=== PATIENT | male | born 1930 | race Caucasian/White ===

== ENCOUNTER → 2016-07-11 08:15 | Outpatient (CLI) | payer MEDICARE, OTHER ==
[2016-05-05 18:41] VITALS: BMI 27.8
[~2016-07-11 08:15] MED LIST: ASPIRIN325 MG PO; CORDARONE200 MG PO; FLOMAX0.4 MG PO; FLORASTOR250 MG PO; FOLIC ACID1 MG PO; HEMOCYTE PLUS C1 CAP PO; HYDROCODON-ACE1 EAC7 PO; HYDROCODONE-APA1 TAB PO; K-TAB10 MEQ PO; LASIX20 MG PO; LEVAQUIN250 MG PO; LIPITOR40 MG PO; LOPRESSOR25 MG PO; NICODERM C1 PATCH .3 TD; NORVASC5 MG PO; OMEPRAZOLE20 M1 PO; PRILOSEC20 MG PO; SENOKOT-S TABLE1 TAB PO; TRIAMTERENE-HCT1 TA1 PO; TYLENOL PM1 TAB PO; XANAX0.5 MG PO; ZESTRIL10 MG PO
--- NOTE | 2016-07-15 11:12 | EC ---
PATIENT:SEB LOZA DATE OF SERVICE: 07/11/16 SEX: M MEDICAL RECORD: [id number] DATE OF : [birth year] LOCATION:[facility] AGE OF PATIENT: 86 ADMISSION DATE: 07/11/16 REFERRING PHYSICIAN: INTERPRETING PHYSICIAN: PIETER ROSAS MD ECHOCARDIOGRAM REPORT ECHO CHARGES 4 ECHO COMPLETE CLINICAL DIAGNOSIS: DYSPNEA/PLEURAL EFFUSION ECHOCARDIOGRAPHIC MEASUREMENTS (adult normal given) AC root (d.<3.7cm) 3.6 LV Septum d (<1.2 cm> 1.4 Valve Excursion 1.9 LV Septum (systole) 2.2 Left Atria (s.<4.0cm> 4.5 LVPW d(<1.2cm) 1.3 RV (d.<2.3cm) 2.6 LVPW (sytole) 1.9 LV diastole(<5.6CM) 5.5 MV E-F(>70mm/sec) LV systole 3.7 LVOT Diameter 1.9 MV exc.(>10mm) Est.ejection fraction (50-75%) Pericardial Effusion N DOPPLER: LVIT A 127.0 E 70.0 LA RVSP 31.3 LVOT 97.0 AOP1/2T Asc. Ao 142 RVOT 58.0 RA PA 95.0 AV Gradient Peak 8.1 AV Mean 4.1 AV Area 2.1 MV Gradient Peak 5.3 MV Mean 1.7 MV Area COMMENTS: Mining Teacher: Jessica MARIEOE Boxing Machine Operator:Jessica Rosas TAPE# PACS DATE OF SERVICE: 07/11/2016 Echocardiogram FINDINGS: 1. Left ventricle chamber size is within normal limits. Left ventricular systolic function is normal. Overall ejection fraction estimated at 55%. 2. Left atrium is enlarged at 4.5 cm. Right atrium and right ventricular chamber sizes are upper limits of normal. 3. Valvular structures have normal structure and motion. ECHOCARDIOGRAM REPORT [id number] SEB LOZA 4. Doppler interrogation reveals mild aortic insufficiency, trace mitral regurgitation, mild tricuspid regurgitation, no other valvular insufficiency or stenosis and pulmonary systolic pressure is estimated at 31 mmHg. 5. No evidence of pericardial effusion or left ventricular thrombus. TRANSINT:[id number] Voice Confirmation ID: [id number] DOCUMENT ID: [id number] PIETER ROSAS MD at 1112 CC: [id number] DICTATION DATE: 07/11/16 1104 TOP CLEANER: 07/12/16 0042 DEP CLI 07/11/16 [facility] [address] [place] [address]
== END | disposition home or self-care (01) ==
LOC: D.ECHO 08:15
DX: R06.00 Dyspnea, unspecified (principal); J90 Pleural effusion, not elsewhere classified

== ENCOUNTER → 2016-07-13 12:14 | Outpatient (CLI) | payer MEDICARE, OTHER ==
[2016-05-05 18:41] VITALS: BMI 27.8
== END | disposition home or self-care (01) ==
LOC: D.CT 12:14
DX: J90 Pleural effusion, not elsewhere classified (principal); R79.1 Abnormal coagulation profile

== ENCOUNTER → 2016-08-24 07:51 | Outpatient (CLI) | payer MEDICARE, OTHER ==
[2016-05-05 18:41] VITALS: BMI 27.8
[2016-08-24 08:34] LABS: HEMOGLOBIN A1C 5.9 % (4.8-6.0)
[2016-08-24 08:43] LABS: ALBUMIN 2.6 g/dL (3.4-5.0); ANION GAP 9.3 mmol/L (8-16); BILIRUBIN - TOTAL 0.65 mg/dL (0.2-1.3); CALCIUM 8.1 mg/dL (8.5-10.1); CARBON DIOXIDE 28.6 mmol/L (21.0-32.0); CREATININE - SERUM 1.3 mg/dL (0.6-1.3); POTASSIUM - SERUM 3.9 mmol/L (3.5-5.1); PROTEIN - SERUM 7.3 g/dL (6.4-8.2)
== END | disposition home or self-care (01) ==
LOC: D.LAB 07:51
PROVIDERS: Family Medicine
DX: E11.9 Type 2 diabetes mellitus without complications (principal); F34.1 Dysthymic disorder; I25.10 Atherosclerotic heart disease of native coronary artery without angina pectoris; I10 Essential (primary) hypertension; K85.90 Acute pancreatitis without necrosis or infection, unspecified; R53.83 Other fatigue; I50.22 Chronic systolic (congestive) heart failure

== ENCOUNTER → 2016-09-28 12:50 | Outpatient (CLI) | payer MEDICARE, OTHER ==
[2016-05-05 18:41] VITALS: BMI 27.8
== END | disposition home or self-care (01) ==
LOC: D.RAD 12:50
DX: J90 Pleural effusion, not elsewhere classified (principal); J18.9 Pneumonia, unspecified organism

== ENCOUNTER → 2016-12-19 08:16 | Outpatient (CLI) | payer MEDICARE, OTHER ==
[2016-05-05 18:41] VITALS: BMI 27.8
== END | disposition home or self-care (01) ==
LOC: D.RT 08:16
DX: R06.00 Dyspnea, unspecified (principal); R60.0 Localized edema

== ENCOUNTER → 2016-12-21 09:55 | Outpatient (CLI) | payer MEDICARE, OTHER ==
[2016-05-05 18:41] VITALS: BMI 27.8
== END | disposition home or self-care (01) ==
LOC: D.RAD 09:55
DX: M54.5 Low back pain (principal)

== ENCOUNTER 2017-01-06 08:10 | Outpatient (CLI) | payer MEDICARE, OTHER ==
[~2017-01-06] VITALS: Ht 177.8 cm; Wt 90.0 kg
[2017-01-06 08:44] LABS: BASOPHILS 0.2 % (0-2); EOSINOPHILS 3.3 % (0-7); HEMATOCRIT 47.8 % (42.0-54.0); HEMOGLOBIN 15.7 g/dL (13.5-17.5); IMMATURE GRANULOCYTES 0.1 % (0-5); LYMPHOCYTES 23.4 % (15-50); MCH 30.5 pg (26.0-34.0); MCHC 32.8 g/dL (31.0-37.0); MEAN PLATELET VOLUME 9.9 fL (7.4-10.4); MONOCYTES 7.9 % (2-11); NEUTROPHILS 65.1 % (40-80); PLATELET COUNT 207 10x3/uL (130-400); RBC 5.14 10x6/uL (4.20-6.10); RDW 14.7 % (11.5-14.5)
[2017-01-06 09:00] LABS: APTT 31.1 SECONDS (22.8-39.4); INR 1.01 (0.85-1.17); PROTIME 13.2 SECONDS (11.6-15.0)
[2017-01-06 09:15] LABS: ANION GAP 12.4 mmol/L (8-16); CALCIUM 8.6 mg/dL (8.5-10.1); CARBON DIOXIDE 28.6 mmol/L (21.0-32.0); CREATININE - SERUM 1.4 mg/dL (0.6-1.3); THYROID STIMULATING HORMONE 4.55 uIU/mL (0.36-3.74)
[2017-01-06] MEDS ORDERED: BAYER CHEWABLE81 MG PO (10:19)
[2017-01-06 10:24] VITALS: Ht 177.8 cm; Wt 90.0 kg
--- NOTE | 2017-01-06 12:25 | NUR ---
1215 BACK FROM THORACENTESIS LEFT POSTERIOR SITE DRESSING C/D/I NO BLEEDING.
--- NOTE | 2017-01-06 16:16 | NUR ---
1330 NO COS OF SOB RESP EVEN AND NONLABORED. DENIES PAIN AND NO CHEST PAIN OR SOB.TOLERATED DIET.
--- NOTE | 2017-01-06 16:16 | NUR ---
1245 NO COS OF PAIN OR SOB RESP EVEN AND NONLABORED. DRESSING LT CHEST C/D/I NO BLEEDING.
--- NOTE | 2017-01-06 16:17 | NUR ---
1400 NO SOB OR CHEST PAIN LEFT CHEST C/D/I.
--- NOTE | 2017-01-06 16:17 | NUR ---
1510 XRAY CHEST DONE WAITING FOR XRAY RESULTS CALLED RADIOLOGY AND WAITING FOR OKAY TO BE DISCHARGED.
--- NOTE | 2017-01-06 16:19 | NUR ---
[address] BANEGAS FOR PATIENT TO BE DISCHARGED. IV DCD CATHETER INTACT. WENT OVER DISCHARGE INSTRUCTIONS AND VERBALLY UNDERRSTANDS. TO HOME VIA W/C WITH SON 1530.
[2017-01-06 16:39] LABS: PROTEIN - BODY FLUID 3.7 G/DL
[2017-01-06 18:49] LABS: LYMPH - BF 93 %; MACROPHAGES BF 4 %; NEUT - BF 3 %
[2017-01-08 13:07] LABS: ACID FAST SMEAR Negative (()); AFB SPECIMEN PROCESSING Concentration (())
[2017-01-11 13:17] LABS: FUNGUS STAIN Final report (())
== END 2017-01-06 15:30 | disposition home or self-care (01) ==
LOC: D.OPS 08:10 → D.SP 11:00 → D.OPS 11:00
PROVIDERS: Internal Medicine Pulmonary Disease; Radiology Diagnostic Radiology
DX: J90 Pleural effusion, not elsewhere classified (principal); R06.02 Shortness of breath; I50.32 Chronic diastolic (congestive) heart failure; J44.9 Chronic obstructive pulmonary disease, unspecified; Z01.812 Encounter for preprocedural laboratory examination

== ENCOUNTER → 2017-03-15 09:33 | Outpatient (CLI) | payer MEDICARE, OTHER ==
[2017-01-06 10:24] VITALS: BMI 28.4
[~2017-03-15 09:33] MED LIST changes: +BAYER CHEWABLE81 MG PO
[2017-03-15 10:07] LABS: ANION GAP 8.8 mmol/L (8-16); CALCIUM 8.6 mg/dL (8.5-10.1); CREATININE - SERUM 1.5 mg/dL (0.6-1.3); POTASSIUM - SERUM 3.8 mmol/L (3.5-5.1)
[2017-03-15 10:13] LABS: HEMOGLOBIN A1C 6.1 % (4.8-6.0)
[2017-03-15 11:14] LABS: ERYTHROCYTE SEDIMENTATION RATE 35 mm/hr (0-30)
[2017-03-15 11:16] LABS: BASOPHILS 0.2 % (0-2); EOSINOPHILS 2.5 % (0-7); HEMATOCRIT 44.3 % (42.0-54.0); HEMOGLOBIN 14.8 g/dL (13.5-17.5); IMMATURE GRANULOCYTES 0.2 % (0-5); LYMPHOCYTES 18.3 % (15-50); MCH 30.7 pg (26.0-34.0); MCHC 33.4 g/dL (31.0-37.0); MCV 91.9 fL (80.0-100.0); MEAN PLATELET VOLUME 9.6 fL (7.4-10.4); MONOCYTES 8.9 % (2-11); NEUTROPHILS 69.9 % (40-80); RBC 4.82 10x6/uL (4.20-6.10); RDW 14.3 % (11.5-14.5); WBC 9.7 10x3/uL (4.8-10.8)
[2017-03-15 11:20] LABS: PLATELET COUNT 258 10x3/uL (130-400)
== END | disposition home or self-care (01) ==
LOC: D.LAB 09:33
PROVIDERS: Family Medicine
DX: R73.9 Hyperglycemia, unspecified (principal); R53.83 Other fatigue; J44.9 Chronic obstructive pulmonary disease, unspecified

== ENCOUNTER → 2017-05-23 09:04 | Outpatient (CLI) | payer MEDICARE, OTHER ==
[2017-01-06 10:24] VITALS: BMI 28.4
== END | disposition home or self-care (01) ==
LOC: D.RAD 09:04
DX: J90 Pleural effusion, not elsewhere classified (principal)

== ENCOUNTER → 2017-08-11 08:32 | Outpatient (CLI) | payer MEDICARE, OTHER ==
[2017-01-06 10:24] VITALS: BMI 28.4
[2017-08-11 09:18] LABS: BASOPHILS 0.3 % (0-2); EOSINOPHILS 2.5 % (0-7); HEMATOCRIT 46.5 % (42.0-54.0); HEMOGLOBIN 15.1 g/dL (13.5-17.5); IMMATURE GRANULOCYTES 0.3 % (0-5); LYMPHOCYTES 22.5 % (15-50); MCH 29.9 pg (26.0-34.0); MCHC 32.5 g/dL (31.0-37.0); MCV 92.1 fL (80.0-100.0); MEAN PLATELET VOLUME 9.1 fL (7.4-10.4); MONOCYTES 8.5 % (2-11); NEUTROPHILS 65.9 % (40-80); RBC 5.05 10x6/uL (4.20-6.10); RDW 14.9 % (11.5-14.5); WBC 7.8 10x3/uL (4.8-10.8)
[2017-08-11 09:21] LABS: PLATELET COUNT 200 10x3/uL (130-400)
[2017-08-11 09:40] LABS: ALBUMIN 2.7 g/dL (3.4-5.0); ANION GAP 9.8 mmol/L (8-16); BILIRUBIN - TOTAL 0.5 mg/dL (0.2-1.3); CALCIUM 8.5 mg/dL (8.5-10.1); CARBON DIOXIDE 31.2 mmol/L (21.0-32.0); CHOL - HDL RATIO 2.2 ratio (2.3-4.9); CREATININE - SERUM 1.5 mg/dL (0.6-1.3); LDL-HDL RATIO 0.8 ratio (1.5-3.5); PROTEIN - SERUM 7.6 g/dL (6.4-8.2); THYROID STIMULATING HORMONE 3.33 uIU/mL (0.36-3.74)
[2017-08-12 08:20] LABS: FOLATE (FOLIC ACID) - SERUM >20.0 ng/mL (>3.0)
[2017-08-14 09:09] LABS: VITAMIN D 25 HYDROXY 42.3 ng/mL (30.0-100.0)
== END | disposition home or self-care (01) ==
LOC: D.LAB 08:32
PROVIDERS: Family Medicine
DX: R53.81 Other malaise (principal); R53.83 Other fatigue; J44.9 Chronic obstructive pulmonary disease, unspecified; F32.9 Major depressive disorder, single episode, unspecified; R73.9 Hyperglycemia, unspecified; I25.10 Atherosclerotic heart disease of native coronary artery without angina pectoris

== ENCOUNTER → 2018-01-16 13:57 | Outpatient (CLI) | payer MEDICARE, OTHER ==
[2017-01-06 10:24] VITALS: BMI 28.4
== END | disposition home or self-care (01) ==
LOC: D.US 13:57
DX: R42 Dizziness and giddiness (principal); I50.9 Heart failure, unspecified; I25.10 Atherosclerotic heart disease of native coronary artery without angina pectoris; I10 Essential (primary) hypertension

== ENCOUNTER → 2018-02-08 10:28 | Outpatient (CLI) | payer MEDICARE, OTHER ==
[2017-01-06 10:24] VITALS: BMI 28.4
== END | disposition home or self-care (01) ==
LOC: D.LAB 08:15
DX: R42 Dizziness and giddiness (principal)

== ENCOUNTER 2018-04-23 14:33 | Inpatient (IN) | payer MEDICARE, OTHER ==
[~2018-04-23] VITALS: Ht 177.8 cm; Wt 90.1 kg
--- NOTE | ~2018-04-23 | MORECARE ---
CASE MANAGEMENT DISCHARGE SUMMARY PATIENT: SEB LOZA UNIT: [id number] ADM DATE: 04/23/18 AGE: 88 : 31 SEX: M ROOM/BED: D.E15 AUTHOR: ABIMBOLA KINGSTON PHYSICIAN: REFERRING PHYSICIAN: SEVERO PATTEN MD DATE OF SERVICE: 04/23/18 Discharge Plan Patient Name: SEB LOZA [facility] [facility] 1930 Planned Disposition: Anticipated Discharge Date: Discharge Date: Expected LOS: Initial Reviewer: [email or web address] Initial Review Date: 04/23/2018 Generated: 04/23/18 7:58 pm DCPIA - Discharge Planning Initial Assessment Updated by [id number]: Trisha Epperson on 04/23/18 6:56 pm * Is the patient Alert and Oriented? Yes * How many steps to enter\exit or inside your home? RAMP * PCP SANDOR * Pharmacy [facility] * Preadmission Environment Home with Family * ADLs Independent * Equipment CPAP * List name and contact numbers for known caregivers / representatives who currently or will assist patient after discharge: KIMBERLEY, ,[phone] * Community resources currently utilized None * Can the patient safely return to the preadmission environment? Yes * Has this patient been hospitalized within the prior 30 days at any hospital? No Patient Name: SEB LOZA Page 33212 at 1858 All edits/amendments must be made on the electronic document DICTATION DATE: 04/23/181856 PROPOSAL REVIEW ANALYST: ANA 04/23/181856 RPT#: [id number] DC DATE: STATUS: ADM IN [facility] [address] [place] [address] END OF REPORT
--- NOTE | ~2018-04-23 | MORECARE ---
CASE MANAGEMENT DISCHARGE SUMMARY PATIENT: SEB LOZA UNIT: [id number] ADM DATE: 04/23/18 AGE: 88 : 31 SEX: M ROOM/BED: D.2136 AUTHOR: VASHTI,DOC PHYSICIAN: REFERRING PHYSICIAN: SEVERO PATTEN MD DATE OF SERVICE: 04/26/18 Discharge Plan Patient Name: SEB LOZA Facility: [facility]:[place] : 1930 Planned Disposition: Home Anticipated Discharge Date: 04/26/18 Discharge Date: Expected LOS: 3 Initial Reviewer: [email or web address] Initial Review Date: 04/23/2018 Generated: 04/26/18 3:34 pm DCP- Discharge Planning Updated by [email or web address]: Trisha Epperson on 04/23/18 6:[address] Patient Name: SEB LOZA Admission Status: ER Accout number: [id number] Admission Date: 04-23-2018 : 1930 Admission Diagnosis: Attending: SEVERO PATTEN Current LOS: 1 Anticipated DC Date: Planned Disposition: Primary Insurance: MEDICARE A & B Discharge Planning Comments: CM MET WITH PATIENT ABOUT DC PLANNING/NEEDS. PATIENT STATES HIS IS A PATIENT IN THE HOSPITAL HERE AND REQUESTS A ROOM CLOSE TO HER. I LET THE PHYSICAL AERODYNAMICIST KNOW HIS REQUEST. PATIENT STATES HE PLANS TO DISCHARGE TO HOME WHEN BETTER. STATES HE DOESN'T KNOW OF ANYTHING HE WILL NEED AT THIS TIME. CM WILL FOLLOW AND ASSIST NEEDED WITH DC PLANNING/NEEDS. Refrigerator Car Icer: Trisha Epperson DCPIA - Discharge Planning Initial Assessment Updated by [email or web address]: Trisha Epperson on 04/23/18 6:56 pm * Is the patient Alert and Oriented? Yes * How many steps to enter\exit or inside your home? RAMP * PCP SANDOR * Pharmacy [facility] * Preadmission Environment Home with Family * ADLs Independent * Equipment CPAP * List name and contact numbers for known caregivers / representatives who currently or will assist patient after discharge: NEVAEH CHU,[phone] * Community resources currently utilized None * Can the patient safely return to the preadmission environment? Yes * Has this patient been hospitalized within the prior 30 days at any hospital? No Coverage Notice Reviewer: [id number] Bobbi Dias Notice Issued Date-Time: 04/26/2018 13:05 Notice Type: IM Discharge Notice Notice Delivered To: Patient Relationship to Patient: Satellite Instruction Facilitator Name: Delivery Method: HAND - Hand Delivered Jayshree Days: Prior Verbal Notification: Recipient Understood Notice: Yes Recipient Signature: Yes Med Rec Note Co-signed by Attending: Coverage Notice Comment: Last DP export: 04/24/18 7:52 Patient Name: SEB LOZA Page 76189 at 1434 All edits/amendments must be made on the electronic document DICTATION DATE: 04/26/18 143 JOB PLACEMENT SPECIALIST: ANA 04/26/18 1434 RPT#: [id number] SC DATE: STATUS: ADM IN [facility] [address] [place] [address] END OF REPORT
--- NOTE | ~2018-04-23 | MORECARE ---
CASE MANAGEMENT DISCHARGE SUMMARY PATIENT: SEB LOZA UNIT: [id number] ADM DATE: 04/23/18 AGE: 88 : 31 SEX: M ROOM/BED: D.2136 AUTHOR: VASHTI,DOC PHYSICIAN: REFERRING PHYSICIAN: SEVERO PATTEN MD DATE OF SERVICE: 04/26/18 Discharge Plan Patient Name: SEB LOZA Facility: [facility]:[place] : 1930 Planned Disposition: Home Anticipated Discharge Date: 04/26/18 Discharge Date: Expected LOS: 3 Initial Reviewer: [id number] Initial Review Date: 04/23/2018 Generated: 04/26/18 3:44 pm Comments DCP- Discharge Planning Updated by [email or web address]: Sourav Dias on 04/26/18 1:[address] Patient Name: SEB LOZA Encounter No: [id number] : 1930 Primary Insurance: MEDICARE A & B Anticipated DC Date: 04-26-2018 Planned Disposition: Home DCP follow-up note: CM MET WITH PT IN ROOM TO DISCUSS DISCHARGE NEEDS AND PLANNING. CM DISCUSSED AVAILABILITY OF HOME HEALTH, REHAB SERVICES AND MEDICAL EQUIPMENT. PT DENIES DISCHARGE NEEDS. PT'S SON TO TRANSPORT HOME AT DISCHARGE. IMPORTANT MESSAGE FROM MEDICARE PROVIDED AND EXPLAINED. VOLLEYBALL COMMENTATOR NURSE NOTIFIED. TERESA Tony DCP- Discharge Planning Updated by [email or web address]: Trisha Epperson on 04/23/18 6:[address] Patient Name: SEB LOZA Admission Status: ER Accout number: [id number] Admission Date: 04-23-2018 : 1930 Admission Diagnosis: Attending: SEVERO PATTEN Current LOS: 1 Anticipated DC Date: Planned Disposition: Primary Insurance: MEDICARE A & B Discharge Planning Comments: CM MET WITH PATIENT ABOUT DC PLANNING/NEEDS. PATIENT STATES HIS IS A PATIENT IN THE HOSPITAL HERE AND REQUESTS A ROOM CLOSE TO HER. I LET THE SCHOOL SOCIAL WORKER KNOW HIS REQUEST. PATIENT STATES HE PLANS TO DISCHARGE TO HOME WHEN BETTER. STATES HE DOESN'T KNOW OF ANYTHING HE WILL NEED AT THIS TIME. CM WILL FOLLOW AND ASSIST NEEDED WITH DC PLANNING/NEEDS. Vp Scientific: Trisha Epperson DCPIA - Discharge Planning Initial Assessment Updated by [email or web address]: Trisha Epperson on 04/23/18 6:56 pm * Is the patient Alert and Oriented? Yes * How many steps to enter\exit or inside your home? RAMP * PCP SANDOR * Pharmacy [facility] * Preadmission Environment Home with Family * ADLs Independent * Equipment CPAP * List name and contact numbers for known caregivers / representatives who currently or will assist patient after discharge: NEVAEH CHU,[phone] * Community resources currently utilized None * Can the patient safely return to the preadmission environment? Yes * Has this patient been hospitalized within the prior 30 days at any hospital? No Coverage Notice Reviewer: [id number] Bobbi Dias Notice Issued Date-Time: 04/26/2018 13:05 Notice Type: IM Discharge Notice Notice Delivered To: Patient Relationship to Patient: Reinforced Steel Placing Supervisor Name: Delivery Method: HAND - Hand Delivered Jayshree Days: Prior Verbal Notification: Recipient Understood Notice: Yes Recipient Signature: Yes Med Rec Note Co-signed by Attending: Coverage Notice Comment: Last DP export: 04/26/18 1:34 Patient Name: SEB LOZA Page 84248 at 1444 All edits/amendments must be made on the electronic document DICTATION DATE: 04/26/181443 ASSESSMENT ANALYST: ANA 04/26/181443 RPT#: [id number] DC DATE: STATUS: ADM IN [facility] [address] [place] [address] END OF REPORT
--- NOTE | ~2018-04-23 | MORECARE ---
CASE MANAGEMENT DISCHARGE SUMMARY PATIENT: SEB LOZA UNIT: [id number] ADM DATE: 04/23/18 AGE: 88 : 31 SEX: M ROOM/BED: D.2136 AUTHOR: VASHTI,DOC PHYSICIAN: REFERRING PHYSICIAN: SEVERO PATTEN MD DATE OF SERVICE: 04/24/18 Discharge Plan Patient Name: SEB LOZA Facility: [facility]:[place] : 1930 Planned Disposition: Home Anticipated Discharge Date: Discharge Date: Expected LOS: Initial Reviewer: [email or web address] Initial Review Date: 04/23/2018 Generated: 04/24/18 9:52 am DCP- Discharge Planning Updated by [email or web address]: Trisha Epperson on 04/23/18 6:[address] Patient Name: SEB LOZA Admission Status: ER Accout number: [id number] Admission Date: 04-23-2018 : 1930 Admission Diagnosis: Attending: SEVERO PATTEN Current LOS: 1 Anticipated DC Date: Planned Disposition: Primary Insurance: MEDICARE A & B Discharge Planning Comments: CM MET WITH PATIENT ABOUT DC PLANNING/NEEDS. PATIENT STATES HIS IS A PATIENT IN THE HOSPITAL HERE AND REQUESTS A ROOM CLOSE TO HER. I LET THE CATTYMAN KNOW HIS REQUEST. PATIENT STATES HE PLANS TO DISCHARGE TO HOME WHEN BETTER. STATES HE DOESN'T KNOW OF ANYTHING HE WILL NEED AT THIS TIME. CM WILL FOLLOW AND ASSIST NEEDED WITH DC PLANNING/NEEDS. Storeroom Clerk: Trisha Epperson DCPIA - Discharge Planning Initial Assessment Updated by [email or web address]: Trisha Epperson on 04/23/18 6:56 pm * Is the patient Alert and Oriented? Yes * How many steps to enter\exit or inside your home? RAMP * PCP SANDOR * Pharmacy [facility] * Preadmission Environment Home with Family * ADLs Independent * Equipment CPAP * List name and contact numbers for known caregivers / representatives who currently or will assist patient after discharge: NEVAEH CHU,[phone] * Community resources currently utilized None * Can the patient safely return to the preadmission environment? Yes * Has this patient been hospitalized within the prior 30 days at any hospital? No Last DP export: 11/12/18 6:05 Patient Name: SEB LOZA Page 51994 at 0852 All edits/amendments must be made on the electronic document DICTATION DATE: 04/24/18851 HARDWARE SALES ASSISTANT: ANA 04/24/18851 RPT#: [id number] DC DATE: STATUS: ADM IN [facility] [address] [place] [address] END OF REPORT
--- NOTE | ~2018-04-23 | MORECARE ---
CASE MANAGEMENT DISCHARGE SUMMARY PATIENT: SEB LOZA UNIT: [id number] ADM DATE: 04/23/18 AGE: 88 : 31 SEX: M ROOM/BED: D.E15 AUTHOR: VASHTIDOC PHYSICIAN: REFERRING PHYSICIAN: SEVERO PATTEN MD DATE OF SERVICE: 04/23/18 Discharge Plan Patient Name: SEB LOZA Facility: [facility]:[place] : 1930 Planned Disposition: Anticipated Discharge Date: Discharge Date: Expected LOS: Initial Reviewer: [email or web address] Initial Review Date: 04/23/2018 Generated: 04/23/18 8:05 pm DCP- Discharge Planning Updated by [email or web address]: Trisha Epperson on 04/23/18 6:[address] Patient Name: SEB LOZA Admission Status: ER Accout number: [id number] Admission Date: 04-23-2018 : 1930 Admission Diagnosis: Attending: SEVERO PATTEN Current LOS: 1 Anticipated DC Date: Planned Disposition: Primary Insurance: MEDICARE A & B Discharge Planning Comments: CM MET WITH PATIENT ABOUT DC PLANNING/NEEDS. PATIENT STATES HIS IS A PATIENT IN THE HOSPITAL HERE AND REQUESTS A ROOM CLOSE TO HER. I LET THE CATERING SERVICE MANAGER KNOW HIS REQUEST. PATIENT STATES HE PLANS TO DISCHARGE TO HOME WHEN BETTER. STATES HE DOESN'T KNOW OF ANYTHING HE WILL NEED AT THIS TIME. CM WILL FOLLOW AND ASSIST NEEDED WITH DC PLANNING/NEEDS. Folder Stitcher Operator: Trisha Epperson DCPIA - Discharge Planning Initial Assessment Updated by [email or web address]: Trisha Epperson on 04/23/18 6:56 pm * Is the patient Alert and Oriented? Yes * How many steps to enter\exit or inside your home? RAMP * PCP SANDOR * Pharmacy [facility] * Preadmission Environment Home with Family * ADLs Independent * Equipment CPAP * List name and contact numbers for known caregivers / representatives who currently or will assist patient after discharge: NEVAEH CHU,[phone] * Community resources currently utilized None * Can the patient safely return to the preadmission environment? Yes * Has this patient been hospitalized within the prior 30 days at any hospital? No Last DP export: 04/23/18 5:58 Patient Name: SEB LOZA Page 63920 at 1906 All edits/amendments must be made on the electronic document DICTATION DATE: 04/23/181904 MIXER ATTENDANT: ANA 04/23/181904 RPT#: [id number] DC DATE: STATUS: ADM IN [facility] [address] [place] [address] END OF REPORT
[2018-04-23] MEDS ORDERED: ASPIRIN325 MG PO (14:54)
[2018-04-23 15:29] LABS: BASOPHILS 0.2 % (0-2); EOSINOPHILS 2.3 % (0-7); HEMATOCRIT 44.7 % (42.0-54.0); HEMOGLOBIN 14.7 g/dL (13.5-17.5); IMMATURE GRANULOCYTES 0.2 % (0-5); LYMPHOCYTES 24.7 % (15-50); MCH 30.4 pg (26.0-34.0); MCHC 32.9 g/dL (31.0-37.0); MCV 92.4 fL (80.0-100.0); MEAN PLATELET VOLUME 9.6 fL (7.4-10.4); MONOCYTES 7.9 % (2-11); NEUTROPHILS 64.7 % (40-80); PLATELET COUNT 221 10x3/uL (130-400); RBC 4.84 10x6/uL (4.20-6.10); RDW 14.8 % (11.5-14.5); WBC 8.2 10x3/uL (4.8-10.8)
[2018-04-23 15:35] LABS: APTT 28.9 SECONDS (22.8-39.4); INR 1.02 (0.85-1.17)
[2018-04-23 15:39] LABS: ALBUMIN 2.8 g/dL (3.4-5.0); ALKALINE PHOSPHATASE 133 U/L (46-116); ALT (SGPT) 23 U/L (10-68); BILIRUBIN - TOTAL 0.55 mg/dL (0.2-1.3); CALC OSMOLALITY 281 mosm/kg (275-300); CALCIUM 8.6 mg/dL (8.5-10.1); CARBON DIOXIDE 31.7 mmol/L (21.0-32.0); CHLORIDE - SERUM 101 mmol/L (98-107); CREATININE - SERUM 1.4 mg/dL (0.6-1.3); GLUCOSE 145 mg/dL (74-106); POTASSIUM - SERUM 3.6 mmol/L (3.5-5.1); PROTEIN - SERUM 7.5 g/dL (6.4-8.2); SODIUM 138 mmol/L (136-145); UREA NITROGEN 20 mg/dL (7-18); eGFR NON AFRICAN AMERICAN 51 mL/min (90-120)
[2018-04-23 16:05] LABS: CKMB 0.8 U/L (0.0-3.6); CREATINE KINASE 97 UL (21-232); PRO BNP 226 pg/mL (0-450)
[2018-04-23 16:06] LABS: TROPONIN-I < 0.017 ng/mL (0.000-0.060)
[2018-04-23 17:00] VITALS: BP 113/62
[2018-04-23 17:14] LABS: APPEARANCE CLEAR (CLEAR); BILIRUBIN NEGATIVE (NEGATIVE); COLOR YELLOW (YELLOW); GLUCOSE NEGATIVE (NEGATIVE); KETONE NEGATIVE (NEGATIVE); NITRITE NEGATIVE (NEGATIVE); PROTEIN NEGATIVE (NEGATIVE); RED CELLS - URINE 0-5 /hpf (0-5); SPECIFIC GRAVITY 1.015 (1.005-1.020); UROBILINOGEN NORMAL (NORMAL); WHITE CELLS - URINE OCC /hpf (0-5)
[2018-04-23 17:16] LABS: BACTERIA FEW /hpf (NONE SEEN)
[2018-04-23 17:30] VITALS: BP 110/68
[2018-04-23 18:15] VITALS: BP 151/77
[2018-04-23 18:45] VITALS: BP 149/76
[2018-04-23 19:53] VITALS: BP 143/76
[2018-04-23 21:58] VITALS: BP 140/78
[2018-04-24 02:13] VITALS: Ht 177.8 cm; Wt 90.1 kg
[2018-04-24 05:50] LABS: BASOPHILS 0.1 % (0-2); EOSINOPHILS 3.4 % (0-7); HEMATOCRIT 42.3 % (42.0-54.0); HEMOGLOBIN 13.7 g/dL (13.5-17.5); IMMATURE GRANULOCYTES 0.1 % (0-5); LYMPHOCYTES 22.8 % (15-50); MCHC 32.4 g/dL (31.0-37.0); MCV 92.8 fL (80.0-100.0); MEAN PLATELET VOLUME 10.1 fL (7.4-10.4); MONOCYTES 9.9 % (2-11); NEUTROPHILS 63.7 % (40-80); PLATELET COUNT 188 10x3/uL (130-400); RBC 4.56 10x6/uL (4.20-6.10); RDW 14.7 % (11.5-14.5); WBC 7.3 10x3/uL (4.8-10.8)
[2018-04-24 06:50] LABS: ANION GAP 12.1 mmol/L (8-16); CALCIUM 8.2 mg/dL (8.5-10.1); CREATININE - SERUM 1.1 mg/dL (0.6-1.3); POTASSIUM - SERUM 4.1 mmol/L (3.5-5.1)
[2018-04-24 06:59] VITALS: BP 131/72
[2018-04-24 08:36] VITALS: BP 121/52
[2018-04-24 12:16] VITALS: BP 136/62
[2018-04-24 21:09] VITALS: BP 151/79
[2018-04-25 01:23] VITALS: BP 140/64
[2018-04-25 06:15] VITALS: BP 124/53
[2018-04-25 08:17] VITALS: BP 127/63
[2018-04-25 13:00] VITALS: BP 135/59
[2018-04-25 20:00] VITALS: BP 142/59
[2018-04-26 04:00] VITALS: BP 115/46
[2018-04-26 08:16] VITALS: BP 123/66
[2018-04-26 11:37] VITALS: BP 131/66
[2018-04-26] MEDS ORDERED: LEVAQUIN750 MG PO (12:12)
[2018-04-26] MEDS ORDERED: LINZESS145 MCG PO (12:13)
[2018-04-26] MEDS ORDERED: FLORANEX / LACT1 TAB PO (12:14)
[2018-04-26] MEDS ORDERED: ALBUTEROL2.5 MG/3 M INH (12:16)
[2018-04-26 15:30] VITALS: BP 148/70
== END 2018-04-26 15:46 | disposition home or self-care (01) | DRG 190 ==
LOC: D.ER 14:33 → D.EDHOLD 18:11 → D.M2 18:11
PROVIDERS: Family Medicine
DX: J44.0 Chronic obstructive pulmonary disease with (acute) lower respiratory infection (principal); J18.9 Pneumonia, unspecified organism; J90 Pleural effusion, not elsewhere classified; J44.1 Chronic obstructive pulmonary disease with (acute) exacerbation; I10 Essential (primary) hypertension; I25.10 Atherosclerotic heart disease of native coronary artery without angina pectoris; K21.9 Gastro-esophageal reflux disease without esophagitis; E78.5 Hyperlipidemia, unspecified; G47.33 Obstructive sleep apnea (adult) (pediatric); F32.9 Major depressive disorder, single episode, unspecified; F41.9 Anxiety disorder, unspecified; N40.0 Benign prostatic hyperplasia without lower urinary tract symptoms; R53.81 Other malaise

== ENCOUNTER → 2018-06-11 08:30 | Outpatient (CLI) | payer MEDICARE, OTHER ==
[~2018-06-11 08:30] MED LIST changes: +ALBUTEROL2.5 MG/3 M INH; +FLORANEX / LACT1 TAB PO; +LEVAQUIN750 MG PO; +LINZESS145 MCG PO
[2018-06-11 09:23] LABS: BASOPHILS 0.2 % (0-2); EOSINOPHILS 3.8 % (0-7); HEMATOCRIT 48.7 % (42.0-54.0); IMMATURE GRANULOCYTES 0.1 % (0-5); LYMPHOCYTES 23.9 % (15-50); MCHC 32.9 g/dL (31.0-37.0); MCV 91.2 fL (80.0-100.0); MEAN PLATELET VOLUME 9.8 fL (7.4-10.4); MONOCYTES 7.9 % (2-11); NEUTROPHILS 64.1 % (40-80); PLATELET COUNT 242 10x3/uL (130-400); RBC 5.34 10x6/uL (4.20-6.10); RDW 14.8 % (11.5-14.5); WBC 8.8 10x3/uL (4.8-10.8)
[2018-06-11 09:46] LABS: T4 THYROXIN - FREE 1.09 ng/dL (0.76-1.46); THYROID STIMULATING HORMONE 4.36 uIU/mL (0.36-3.74)
[2018-06-14 09:14] LABS: TESTOSTERONE - FREE 6.1 pg/mL (6.6-18.1); TESTOSTERONE - SERUM 868 ng/dL (264-916)
== END | disposition home or self-care (01) ==
LOC: D.RT 08:30
PROVIDERS: Internal Medicine Pulmonary Disease
DX: J44.9 Chronic obstructive pulmonary disease, unspecified (principal); J90 Pleural effusion, not elsewhere classified; E88.01 Alpha-1-antitrypsin deficiency; R53.83 Other fatigue

== ENCOUNTER → 2018-07-17 10:12 | Outpatient (CLI) | payer MEDICARE, OTHER ==
[~2018-07-17 10:12] MED LIST changes: +GUAIFENESIN/CODEINE PO; +TAMIFLU75 MG PO
== END | disposition home or self-care (01) ==
LOC: D.LAB 10:12
PROVIDERS: Family Medicine
DX: R73.9 Hyperglycemia, unspecified (principal)

== ENCOUNTER 2018-07-28 17:50 | Inpatient (IN) | payer MEDICARE, OTHER ==
[~2018-07-28] VITALS: Ht 177.8 cm; Wt 88.6 kg
[~2018-07-28 17:50] MED LIST changes: -GUAIFENESIN/CODEINE PO; -TAMIFLU75 MG PO
[2018-07-28 18:25] LABS: BASOPHILS 0.3 % (0-2); HEMATOCRIT 44.8 % (42.0-54.0); HEMOGLOBIN 14.8 g/dL (13.5-17.5); IMMATURE GRANULOCYTES 0.2 % (0-5); MCV 90.7 fL (80.0-100.0); MEAN PLATELET VOLUME 9.4 fL (7.4-10.4); MONOCYTES 6.6 % (2-11); NEUTROPHILS 77.9 % (40-80); PLATELET COUNT 217 10x3/uL (130-400); RBC 4.94 10x6/uL (4.20-6.10); RDW 14.9 % (11.5-14.5); WBC 10.3 10x3/uL (4.8-10.8)
[2018-07-28 18:44] LABS: APPEARANCE CLEAR (CLEAR); COLOR YELLOW (YELLOW); NITRITE NEGATIVE (NEGATIVE); SPECIFIC GRAVITY 1.005 (1.005-1.020)
[2018-07-28 18:45] LABS: BILIRUBIN NEGATIVE (NEGATIVE); GLUCOSE NEGATIVE (NEGATIVE); KETONE NEGATIVE (NEGATIVE); PROTEIN NEGATIVE (NEGATIVE); RED CELLS - URINE OCC /hpf (0-5); UROBILINOGEN NORMAL (NORMAL); WHITE CELLS - URINE NSEEN /hpf (0-5)
[2018-07-28 18:48] LABS: ALBUMIN 2.6 g/dL (3.4-5.0); BILIRUBIN - TOTAL 0.74 mg/dL (0.2-1.3); CALCIUM 8.2 mg/dL (8.5-10.1); CARBON DIOXIDE 29.8 mmol/L (21.0-32.0); CREATININE - SERUM 1.5 mg/dL (0.6-1.3); POTASSIUM - SERUM 3.8 mmol/L (3.5-5.1); PROTEIN - SERUM 7.3 g/dL (6.4-8.2)
[2018-07-28 19:00] VITALS: BP 128/59
[2018-07-28 19:18] VITALS: BP 154/63
--- NOTE | 2018-07-28 20:28 | NUR ---
ARRIVED ON FLOOR VIA WC. SELF AMBULATED TO BATHROOM. SL TO LEFT FA. ORIENTED TO ROOM AND CALL LIGHT. PLACED ON 2L O2 PER ORDER. ASSESSMENT AND HISTORY PER FLOW SHEET.
[2018-07-28] MEDS ORDERED: FLORANEX / LACT1 TAB PO (20:47)
[2018-07-28] MEDS ORDERED: LINZESS145 MCG PO (20:50)
[2018-07-28 21:31] VITALS: BP 128/59; Ht 177.8 cm; Wt 88.6 kg
[2018-07-29] VITALS: BP 130/56
--- NOTE | 2018-07-29 01:14 | NUR ---
PAGED SANDOR ABOUT PT DESIRE FOR COUGH MEDICINE.
[2018-07-29] MEDS ORDERED: GUAIFENESIN/CODEINE PO (01:31)
[2018-07-29 03:00] VITALS: BP 161/94
[2018-07-29 09:27] VITALS: BP 124/60
--- NOTE | 2018-07-29 11:10 | NUR ---
ALERT AND ORIENTED AND ON AIRBOURN ISOLATION FOR POSITIVE INFLUENZA. RESPIATIONS CLEAR BUT DIMINISHEDX4 ANTERIOR. IV INFUSING TO LT. F/A AT PRESCRIBED RATE. O2 2L N/C. DENIES ANY SOB OR PAIN AT THIS TIME. ENCOURAGED TO USE CALL LLIGHT FOR ASSSIT.
[2018-07-29 13:20] VITALS: BP 124/63
[2018-07-29 17:02] VITALS: BP 136/57
[2018-07-29 19:00] VITALS: BP 128/59
--- NOTE | 2018-07-29 20:00 | NUR ---
ALERT RESTING IN BED RESP UNLABORED O2 IN USE DENIES PAIN, IV INFUSING WITHOUT DIFFICULTY, CALL LIGHT IN REACH
[2018-07-30] VITALS: BP 130/61
[2018-07-30 03:00] VITALS: BP 142/58
--- NOTE | 2018-07-30 07:50 | NUR ---
PT IS RESTING IN BED WITH EYES OPEN. RESPIRATIONS ARE EVEN AND UNLABORED. PT DENIES PRESENCE OF N/V AND PAIN AT THIS TIME. O2 @ 2L VIA NC. PT DENIES FURTHER NEEDS AT THIS TIME. SCDS ARE ON AND WORKING. BED IS IN THE LOWEST POSITION. CALL LIGHT AND BEDSIDE TABLE ARE WITHIN REACH. WILL CONT TO MONITOR.
[2018-07-30 08:21] VITALS: BP 133/65
[2018-07-30 12:20] VITALS: BP 134/62
--- NOTE | 2018-07-30 14:33 | NUR ---
PIV TO LEFT FOREARM WITH REDNESS AND WARMTH. PT REPORTS SLIGHT BURNING AT IV SITE. PIV REMOVED WITH CATHETER TIP INTACT. PT WOULD LIKE TO NOT RESITE IV AT THIS TIME. BED IS IN THE LOWEST POSITION. CALL LIGHT AND BEDSIDE TABLE ARE WITHIN REACH. PT DOES HAVE WATER AVAILABLE FOR DRINKING.
[2018-07-30 16:00] VITALS: BP 126/59
--- NOTE | 2018-07-30 19:10 | NUR ---
THE PATIENT WAS WATCHING TELEVISION WHEN STAFF ENTERED HIS AREA. BED IN THE LOW POSITION WITH SIDERAILS X2 AND CALL LIGHT WITHIN REACH. PATIENT ON DROPLET PRECAUTIONS. PATIENT EDUCATED ON USE OF A CALL LIGHT AND THE NEED TO REMAIN IN HIS ROOM.THE PATIENT DEMONSTRATES UNDERSTANDING VIA TEACHBACK METHOD. THE PATIENT APPEARS COMFORTABLE WITH NO QUESTIONS OR CONCERNS AT THIS TIME.
[2018-07-30 20:00] VITALS: BP 132/60
[2018-07-31] VITALS: BP 123/56
--- NOTE | 2018-07-31 02:59 | NUR ---
THE PATIENT IS AWAKE. HE DENIES ANY QUESTIONS OR CONCERNS AT THIS TIME.
[2018-07-31 04:10] VITALS: BP 130/59
--- NOTE | 2018-07-31 08:12 | NUR ---
PT LAYING IN BED RESTING. DENIES PAIN AT THIS TIME. REFUSES IV. A/O X4. UP AB MICKEY. 2L VIA KS. NO FURTHER CONCERNS AT THIS TIME. BED LOWERED AND LOCKED. CL IN REACH. WILL CONTINUE TO MONITOR.
[2018-07-31 08:27] VITALS: BP 108/60
--- NOTE | 2018-07-31 11:31 | MORECARE ---
CASE MANAGEMENT DISCHARGE SUMMARY PATIENT: SEB LOZA UNIT: [id number] ADM DATE: 07/28/18 AGE: 88 : 31 SEX: M ROOM/BED: D.2239 AUTHOR: VASHTI,DOC PHYSICIAN: REFERRING PHYSICIAN: SEVERO GROVE MD DATE OF SERVICE: 07/31/18 Discharge Plan Patient Name: SEB LOZA Facility: [facility]:[place] : 1930 Planned Disposition: Home Anticipated Discharge Date: 08/01/18 Discharge Date: Expected LOS: 4 Initial Reviewer: [email or web address] Initial Review Date: 07/31/2018 Generated: 07/31/18 12:31 pm Comments DCP- Discharge Planning Updated by [email or web address]: Kizzy Leon on 07/31/18 10:[address] Patient Name: SEB LOZA Admission Status: ER Accout number: [id number] Admission Date: 07-28-2018 : 1930 Admission Diagnosis:FLU DUE TO UNIDENTIFIED INFLUENZA VIRUS W OTH RESP CJ Attending: SEVERO GROVE Current LOS: 3 Anticipated DC Date: 08-01-2018 Planned Disposition: Home Primary Insurance: MEDICARE A & B Discharge Planning Comments: CM met with patient to complete initial dc planning assessment. CM educated patient on the CM role and verbal consent given by patient to complete assessment. Patient lives alone. At discharge patient plans to return and feels this is a safe discharge. CM discussed availability of home health, rehab services, and medical equipment. Patient denied known discharge needs at this time. States he uses [facility] for CPAP supplies. I have ordered a walk test for possible home oxygen needs. Declines home health offered CM will continue to follow and will assist as needed with dc plans/needs. Candle Making Supervisor: Kizzy Leon DCPIA - Discharge Planning Initial Assessment Updated by [email or web address]: Kizzy Leon on 07/31/18 11:28 am * Is the patient Alert and Oriented? Yes * How many steps to enter\exit or inside your home? 0/0 * PCP Dr. Grove * Pharmacy [facility] * Preadmission Environment Home Alone * ADLs Independent * Equipment CPAP Nebulizer * List name and contact numbers for known caregivers / representatives who currently or will assist patient after discharge: Jorge A Loza - son [phone] * Verbal permission to speak to the caregivers and representatives has been obtained from the patient. Yes * Community resources currently utilized Other * Please name any agencies selected above. DME company is [facility] * Additional services required to return to the preadmission environment? No * Can the patient safely return to the preadmission environment? Yes * Has this patient been hospitalized within the prior 30 days at any hospital? No Patient Name: SBE LOZA Page 45513 at 1131 All edits/amendments must be made on the electronic document DICTATION DATE: 07/31/18 1131 BONSAI CULTURIST: ANA 07/31/18 1131 RPT#: [id number] DE DATE: STATUS: ADM IN [facility] [address] [place] [address] END OF REPORT
--- NOTE | 2018-07-31 11:42 | NUR ---
PT REFUSES IV INSERTION.
[2018-07-31 12:04] VITALS: BP 103/53
--- NOTE | 2018-07-31 13:34 | MORECARE ---
CASE MANAGEMENT DISCHARGE SUMMARY PATIENT: SEB LOZA UNIT: [id number] ADM DATE: 07/28/18 AGE: 88 : 31 SEX: M ROOM/BED: D.2239 AUTHOR: VASHTI,DOC PHYSICIAN: REFERRING PHYSICIAN: SEVERO GROVE MD DATE OF SERVICE: 07/31/18 Discharge Plan Patient Name: SEB LOZA Facility: [facility]:[place] : 1930 Planned Disposition: Home Anticipated Discharge Date: 08/01/18 Discharge Date: Expected LOS: 4 Initial Reviewer: [email or web address] Initial Review Date: 07/31/2018 Generated: 07/31/18 2:34 pm Comments DCP- Discharge Planning Updated by [email or web address]: Kizzy Leon on 07/31/18 10:[address] Patient Name: SEB LOZA Admission Status: ER Accout number: [id number] Admission Date: 07-28-2018 : 1930 Admission Diagnosis:FLU DUE TO UNIDENTIFIED INFLUENZA VIRUS W OTH RESP CJ Attending: SEVERO GROVE Current LOS: 3 Anticipated DC Date: 08-01-2018 Planned Disposition: Home Primary Insurance: MEDICARE A & B Discharge Planning Comments: CM met with patient to complete initial dc planning assessment. CM educated patient on the CM role and verbal consent given by patient to complete assessment. Patient lives alone. At discharge patient plans to return and feels this is a safe discharge. CM discussed availability of home health, rehab services, and medical equipment. Patient denied known discharge needs at this time. States he uses [facility] for CPAP supplies. I have ordered a walk test for possible home oxygen needs. Declines home health offered CM will continue to follow and will assist as needed with dc plans/needs. District Agent: Kizzy Leon DCPIA - Discharge Planning Initial Assessment Updated by [email or web address]: Kizzy Leon on 07/31/18 11:28 am * Is the patient Alert and Oriented? Yes * How many steps to enter\exit or inside your home? 0/0 * PCP Dr. Grove * Pharmacy [facility] * Preadmission Environment Home Alone * ADLs Independent * Equipment CPAP Nebulizer * List name and contact numbers for known caregivers / representatives who currently or will assist patient after discharge: Jorge A Loza - son [phone] * Verbal permission to speak to the caregivers and representatives has been obtained from the patient. Yes * Community resources currently utilized Other * Please name any agencies selected above. DME company is [facility] * Additional services required to return to the preadmission environment? No * Can the patient safely return to the preadmission environment? Yes * Has this patient been hospitalized within the prior 30 days at any hospital? No External Providers External Provider: [facility] Next Contact Date: Service Request Date: Service Type: Resolution: Reviewer: Comments: Last DP export: 07/31/18 10:31 a Patient Name: SEB LOZA Page 18338 at 1334 All edits/amendments must be made on the electronic document DICTATION DATE: 07/31/18 133 PIGEON FANCIER: ANA 07/31/18 1333 RPT#: [id number] DC DATE: STATUS: ADM IN [facility] [address] [place] [address] END OF REPORT
--- NOTE | 2018-07-31 13:47 | MORECARE ---
CASE MANAGEMENT DISCHARGE SUMMARY PATIENT: SEB LOZA UNIT: [id number] ADM DATE: 07/28/18 AGE: 88 : 31 SEX: M ROOM/BED: D.2239 AUTHOR: VASHTI,DOC PHYSICIAN: REFERRING PHYSICIAN: SEVERO GROVE MD DATE OF SERVICE: 07/31/18 Discharge Plan Patient Name: SEB LOZA Facility: [facility]:[place] : 1930 Planned Disposition: Home Anticipated Discharge Date: 08/01/18 Discharge Date: Expected LOS: 4 Initial Reviewer: [email or web address] Initial Review Date: 07/31/2018 Generated: 07/31/18 2:47 pm Comments DCP- Discharge Planning Updated by [email or web address]: Kizzy Leon on 07/31/18 12:[address] Walk test is 87% with activity. I sent walk test and oxygen order to Nilesh with [facility]. Patient states he will be going to his ex 's house on discharge at [address] [place] [address]. I informed Nilesh of different address than face sheet. CM will continue to follow and assist with discharge planning/needs. DCP- Discharge Planning Updated by [email or web address]: Kizzy Leon on 07/31/18 10:[address] Patient Name: SEB LOZA Admission Status: ER Accout number: [id number] Admission Date: 07-28-2018 : 1930 Admission Diagnosis:FLU DUE TO UNIDENTIFIED INFLUENZA VIRUS W OTH RESP CJ Attending: SEVERO GROVE Current LOS: 3 Anticipated DC Date: 08-01-2018 Planned Disposition: Home Primary Insurance: MEDICARE A & B Discharge Planning Comments: CM met with patient to complete initial dc planning assessment. CM educated patient on the CM role and verbal consent given by patient to complete assessment. Patient lives alone. At discharge patient plans to return and feels this is a safe discharge. CM discussed availability of home health, rehab services, and medical equipment. Patient denied known discharge needs at this time. States he uses [facility] for CPAP supplies. I have ordered a walk test for possible home oxygen needs. Declines home health offered CM will continue to follow and will assist as needed with dc plans/needs. Business Operations Coordinator: Kizzy Leon DCPIA - Discharge Planning Initial Assessment Updated by [email or web address]: Kizzy Edward on 07/31/18 11:28 am * Is the patient Alert and Oriented? Yes * How many steps to enter\exit or inside your home? 0/0 * PCP Dr. Grove * Pharmacy [facility] * Preadmission Environment Home Alone * ADLs Independent * Equipment CPAP Nebulizer * List name and contact numbers for known caregivers / representatives who currently or will assist patient after discharge: Jorge A Loza - son [phone] * Verbal permission to speak to the caregivers and representatives has been obtained from the patient. Yes * Community resources currently utilized Other * Please name any agencies selected above. DME company is [facility] * Additional services required to return to the preadmission environment? No * Can the patient safely return to the preadmission environment? Yes * Has this patient been hospitalized within the prior 30 days at any hospital? No Last DP export: 07/31/18 12:34 p Patient Name: SEB LOZA Page 23555 at 1347 All edits/amendments must be made on the electronic document DICTATION DATE: 07/31/18 1347 RENTAL SALES AGENT: ANA 07/31/18 1347 RPT#: [id number] HI DATE: STATUS: ADM IN [facility] [address] [place] [address] END OF REPORT
[2018-07-31 15:07] VITALS: BP 115/59
--- NOTE | 2018-07-31 16:38 | NUR ---
PATIENT RESTING IN BED, DX WITH FLU, PATIENT DENIES ANY NEEDS AT THIS TIME, CL IN REACH
[2018-07-31 20:00] VITALS: BP 118/62
--- NOTE | 2018-07-31 20:30 | NUR ---
PT RESTING IN BED. ALERT AND ORIENTED. NO SIGNS OF DISTRESS. BREATHING EVEN AND UNLABORED. PT STATES NO PROBLEMS AT THIS TIME. NO IV SITE. PT REFUSES IV. SKIN CLEAN DRY AND INTACT. NO LWOER ELG SWELLING PRESENT. PT REFUSES SCDS. WILL CONTINUE PLAN OF CARE. CALL LIGHT IN REACH. BED LOWERED AND LOCKED. BED RAILS UP X2.
--- NOTE | 2018-07-31 23:07 | NUR ---
RESTING IN BED RESPRATIONS EVEN AND UNLABORED , NO S/S OF DISTERSS, CALL LIGHT IN REACH. NO NEEDS NOTED AT THIS TIME CHECKED OFTEN FOR NEEDS AND SAFETY,
[2018-08-01 04:00] VITALS: BP 121/61
--- NOTE | 2018-08-01 06:35 | NUR ---
EYES CLOSED RESPIRATIONS WITH EASE AND UNLABORED.
[2018-08-01] MEDS ORDERED: TAMIFLU75 MG PO (07:04)
--- NOTE | 2018-08-01 07:30 | NUR ---
PT RESTING IN BED, EYES CLOSED. RESPIRATIONS EVEN AND UNLABORED. AROUSES TO VOICE. PT ALERT AND ORIENTED. PT RECEIVES LOVENOX. PT ON DROPLET PRECAUTIONS FOR FLU A. PT NEW [place]. PT USES URINAL TO VOID. PT ON 2L O2, NC. PT DENIES ANYTHING FURTHER AT THIS TIME. CALL LIGHT IN REACH. WILL CONTINUE TO MONITOR.
[2018-08-01 08:00] VITALS: BP 117/58
--- NOTE | 2018-08-01 10:00 | NUR ---
PT DISCHARGED HOME VIA WHEELCHAIR WITH SON. NO C/O PAIN. NO S/S OF ACUTE DISTRESS NOTED. WENT OVER DISCHARGE INSTRUCTIONS WITH PT, PT ACKNOWLEDGED. PT DENIES ANYTHING FURTHER.
--- NOTE | 2018-08-01 10:46 | MORECARE ---
CASE MANAGEMENT DISCHARGE SUMMARY PATIENT: SEB LOZA UNIT: [id number] ADM DATE: 07/28/18 AGE: 88 : 31 SEX: M ROOM/BED: D.2239 AUTHOR: VASHTI,DOC PHYSICIAN: REFERRING PHYSICIAN: SEVERO GROVE MD DATE OF SERVICE: 08/01/18 Discharge Plan Patient Name: SEB LOZA Facility: [facility]:[place] : 1930 Planned Disposition: Home Anticipated Discharge Date: 08/01/18 Discharge Date: Expected LOS: 4 Initial Reviewer: [email or web address] Initial Review Date: 07/31/2018 Generated: 08/01/18 11:46 am Comments DCP- Discharge Planning Updated by [email or web address]: Kizzy Redabi on 08/01/18 9:[address] [facility] has delivered portable oxygen. Patient in agreement to discharge. States he has someone picking him up. States he will tell [facility] when to meet to set up his home oxygen, I have also told the message and delivery service pricer. He declines home health. States he will be staying with his ex for now. Declines further needs. CM will continue to follow and assist with discharge planning/needs. DCP- Discharge Planning Updated by [email or web address]: Kizzy Redabi on 07/31/18 12:[address] Walk test is 87% with activity. I sent walk test and oxygen order to Nilesh with [facility]. Patient states he will be going to his ex 's house on discharge at [address] [place] [address] in [place]. I informed Nilesh of different address than face sheet. CM will continue to follow and assist with discharge planning/needs. DCP- Discharge Planning Updated by [email or web address]: Kizzy Redabi on 07/31/18 10:[address] Patient Name: SEB LOZA Admission Status: ER Accout number: [id number] Admission Date: 07-28-2018 : 1930 Admission Diagnosis:FLU DUE TO UNIDENTIFIED INFLUENZA VIRUS W OTH RESP CJ Attending: SEVERO GROVE Current LOS: 3 Anticipated DC Date: 08-01-2018 Planned Disposition: Home Primary Insurance: MEDICARE A & B Discharge Planning Comments: CM met with patient to complete initial dc planning assessment. CM educated patient on the CM role and verbal consent given by patient to complete assessment. Patient lives alone. At discharge patient plans to return and feels this is a safe discharge. CM discussed availability of home health, rehab services, and medical equipment. Patient denied known discharge needs at this time. States he uses [facility] for CPAP supplies. I have ordered a walk test for possible home oxygen needs. Declines home health offered CM will continue to follow and will assist as needed with dc plans/needs. Clay Mine Cutting Machine Operator: Kizzy Leon DCPIA - Discharge Planning Initial Assessment Updated by [email or web address]: Kizzy Leon on 07/31/18 11:28 am * Is the patient Alert and Oriented? Yes * How many steps to enter\exit or inside your home? 0/0 * PCP Dr. Grove * Pharmacy [facility] * Preadmission Environment Home Alone * ADLs Independent * Equipment CPAP Nebulizer * List name and contact numbers for known caregivers / representatives who currently or will assist patient after discharge: Jorge A Loza - son [phone] * Verbal permission to speak to the caregivers and representatives has been obtained from the patient. Yes * Community resources currently utilized Other * Please name any agencies selected above. DME company is [facility] * Additional services required to return to the preadmission environment? No * Can the patient safely return to the preadmission environment? Yes * Has this patient been hospitalized within the prior 30 days at any hospital? No Coverage Notice Reviewer: [id number] - Kizzy Leon Notice Issued Date-Time: 08/01/2018 10:37 Notice Type: IM Discharge Notice Notice Delivered To: Patient Relationship to Patient: Self Stitching Machine Feeder Or Offbearer Name: Delivery Method: HAND - Hand Delivered Jayshree Days: Prior Verbal Notification: Recipient Understood Notice: Yes Recipient Signature: Yes Med Rec Note Co-signed by Attending: Coverage Notice Comment: IMM explained, signed, given, copy placed in MR Last DP export: 07/31/18 12:47 p Patient Name: SEB LOZA Page 27735 at 1046 All edits/amendments must be made on the electronic document DICTATION DATE: 08/01/18 1046 UNISHEAR OPERATOR: ANA 08/01/18 1046 RPT#: [id number] DC DATE: STATUS: ADM IN [facility] [address] [place] [address] END OF REPORT
--- NOTE | 2018-08-02 14:07 | MORECARE ---
CASE MANAGEMENT DISCHARGE SUMMARY PATIENT: SEB LOZA UNIT: [id number] ADM DATE: 07/28/18 AGE: 88 : 31 SEX: M ROOM/BED: D.2239 AUTHOR: VASHTI,DOC PHYSICIAN: REFERRING PHYSICIAN: SEVERO GROVE MD DATE OF SERVICE: 08/02/18 Discharge Plan Patient Name: SEB LOZA Facility: [facility]:[place] : 1930 Planned Disposition: Home Anticipated Discharge Date: 08/01/18 Discharge Date: 08/01/2018 Expected LOS: 4 Initial Reviewer: [email or web address] Initial Review Date: 07/31/2018 Generated: 08/02/18 3:07 pm Comments DCP- Discharge Planning Updated by [email or web address]: Kizzy Redabi on 08/01/18 9:[address] [facility] portable oxygen. Patient in agreement to discharge. States he has someone picking him up. States he will tell [facility] when to meet to set up his home oxygen, I have also told the special delivery mail carrier. He declines home health. States he will be staying with his ex for now. Declines further needs. CM will continue to follow and assist with discharge planning/needs. DCP- Discharge Planning Updated by [email or web address]: Kizzy Leon on 07/31/18 12:[address] Walk test is 87% with activity. I sent walk test and oxygen order to Nilesh with [facility]. Patient states he will be going to his ex 's house on discharge at [address] [place] [address] in [place]. I informed Nilesh of different address than face sheet. CM will continue to follow and assist with discharge planning/needs. DCP- Discharge Planning Updated by [email or web address]: Kizzy Redabi on 07/31/18 10:[address] Patient Name: SEB LOZA Admission Status: ER Accout number: [id number] Admission Date: 07-28-2018 : 1930 Admission Diagnosis:FLU DUE TO UNIDENTIFIED INFLUENZA VIRUS W OTH RESP CJ Attending: SEVERO GROVE Current LOS: 3 Anticipated DC Date: 08-01-2018 Planned Disposition: Home Primary Insurance: MEDICARE A & B Discharge Planning Comments: CM met with patient to complete initial dc planning assessment. CM educated patient on the CM role and verbal consent given by patient to complete assessment. Patient lives alone. At discharge patient plans to return and feels this is a safe discharge. CM discussed availability of home health, rehab services, and medical equipment. Patient denied known discharge needs at this time. States he uses [facility] for CPAP supplies. I have ordered a walk test for possible home oxygen needs. Declines home health offered CM will continue to follow and will assist as needed with dc plans/needs. Software Systems Engineer: Kizzy Leon DCPIA - Discharge Planning Initial Assessment Updated by [email or web address]: Kizzy Leon on 07/31/18 11:28 am * Is the patient Alert and Oriented? Yes * How many steps to enter\exit or inside your home? 0/0 * PCP Dr. Grove * Pharmacy [facility] * Preadmission Environment Home Alone * ADLs Independent * Equipment CPAP Nebulizer * List name and contact numbers for known caregivers / representatives who currently or will assist patient after discharge: Jorge A Loza - son [phone] * Verbal permission to speak to the caregivers and representatives has been obtained from the patient. Yes * Community resources currently utilized Other * Please name any agencies selected above. DME company is [facility] * Additional services required to return to the preadmission environment? No * Can the patient safely return to the preadmission environment? Yes * Has this patient been hospitalized within the prior 30 days at any hospital? No Coverage Notice Reviewer: [id number] - Kizzy Leon Notice Issued Date-Time: 08/01/2018 10:37 Notice Type: IM Discharge Notice Notice Delivered To: Patient Relationship to Patient: Self Manuscripts Curator Name: Delivery Method: HAND - Hand Delivered Jayshree Days: Prior Verbal Notification: Recipient Understood Notice: Yes Recipient Signature: Yes Med Rec Note Co-signed by Attending: Coverage Notice Comment: IMM explained, signed, given, copy placed in MR Last DP export: 08/01/18 9:46 a Patient Name: SEB LOZA Page 98136 at 1407 All edits/amendments must be made on the electronic document DICTATION DATE: 08/02/18 1406 MIXING TUMBLER OPERATOR: ANA 08/02/18 1406 RPT#: [id number] DC DATE:08/01/18 STATUS: DIS IN [facility] [address] [place] [address] END OF REPORT
== END 2018-08-01 11:33 | disposition home or self-care (01) | DRG 153 ==
LOC: D.ER 17:50 → D.MS 19:49 → D.EDHOLD 19:49 → D.MS 20:12
PROVIDERS: Family Medicine; ADMIT Family Medicine
DX: J11.1 Influenza due to unidentified influenza virus with other respiratory manifestations (principal); I13.0 Hypertensive heart and chronic kidney disease with heart failure and stage 1 through stage 4 chronic kidney disease, or unspecified chronic kidney disease; I25.10 Atherosclerotic heart disease of native coronary artery without angina pectoris; I11.0 Hypertensive heart disease with heart failure; I50.9 Heart failure, unspecified; N18.2 Chronic kidney disease, stage 2 (mild); K21.9 Gastro-esophageal reflux disease without esophagitis; F34.1 Dysthymic disorder; F41.8 Other specified anxiety disorders; J44.9 Chronic obstructive pulmonary disease, unspecified

== ENCOUNTER → 2018-08-08 09:21 | Outpatient (CLI) | payer MEDICARE, OTHER ==
[2018-07-28 21:31] VITALS: BMI 28.0
[~2018-08-08 09:21] MED LIST changes: +GUAIFENESIN/CODEINE PO; +TAMIFLU75 MG PO
[2018-08-08 10:07] LABS: BASOPHILS 0.2 % (0-2); EOSINOPHILS 7.8 % (0-7); HEMATOCRIT 42.7 % (42.0-54.0); IMMATURE GRANULOCYTES 0.1 % (0-5); LYMPHOCYTES 19.1 % (15-50); MCH 29.7 pg (26.0-34.0); MCHC 32.8 g/dL (31.0-37.0); MCV 90.5 fL (80.0-100.0); MEAN PLATELET VOLUME 9.3 fL (7.4-10.4); MONOCYTES 8.8 % (2-11); PLATELET COUNT 237 10x3/uL (130-400); RBC 4.72 10x6/uL (4.20-6.10); RDW 15.2 % (11.5-14.5); WBC 8.6 10x3/uL (4.8-10.8)
[2018-08-08 10:33] LABS: ALBUMIN 2.6 g/dL (3.4-5.0); ANION GAP 11.9 mmol/L (8-16); BILIRUBIN - TOTAL 0.53 mg/dL (0.2-1.3); CALCIUM 8.6 mg/dL (8.5-10.1); CARBON DIOXIDE 26.3 mmol/L (21.0-32.0); CREATININE - SERUM 1.2 mg/dL (0.6-1.3); POTASSIUM - SERUM 4.2 mmol/L (3.5-5.1); PROTEIN - SERUM 7.1 g/dL (6.4-8.2); THYROID STIMULATING HORMONE 2.88 uIU/mL (0.36-3.74)
== END | disposition home or self-care (01) ==
LOC: D.RAD 09:21
PROVIDERS: ATTEND Family Medicine
DX: J44.9 Chronic obstructive pulmonary disease, unspecified (principal); R05 Cough

== ENCOUNTER 2018-08-23 09:09 | Inpatient (IN) | payer MEDICARE, OTHER ==
[2018-08-23 10:08] LABS: HEMATOCRIT 44.9 % (42.0-54.0); HEMOGLOBIN 14.6 g/dL (13.5-17.5); LYMPHOCYTES 23.1 % (15-50); MCH 29.3 pg (26.0-34.0); MCHC 32.5 g/dL (31.0-37.0); MCV 90.2 fL (80.0-100.0); PLATELET COUNT 205 10x3/uL (130-400); RBC 4.98 10x6/uL (4.20-6.10); RDW 14.6 % (11.5-14.5); WBC 6.9 10x3/uL (4.8-10.8)
[2018-08-23 10:27] LABS: ALBUMIN 2.6 g/dL (3.4-5.0); ANION GAP 10.5 mmol/L (8-16); BILIRUBIN - TOTAL 0.52 mg/dL (0.2-1.3); CALCIUM 8.4 mg/dL (8.5-10.1); CARBON DIOXIDE 30.2 mmol/L (21.0-32.0); CREATININE - SERUM 1.3 mg/dL (0.6-1.3); POTASSIUM - SERUM 3.7 mmol/L (3.5-5.1); PROTEIN - SERUM 7.1 g/dL (6.4-8.2)
[2018-08-23 10:49] LABS: THYROID STIMULATING HORMONE 3.12 uIU/mL (0.36-3.74)
[2018-08-23 10:55] LABS: APPEARANCE CLEAR (CLEAR); BACTERIA FEW /hpf (NONE SEEN); BILIRUBIN NEGATIVE (NEGATIVE); COLOR YELLOW (YELLOW); EPITHELIAL CELLS OCC /hpf (0-5); GLUCOSE NEGATIVE (NEGATIVE); KETONE NEGATIVE (NEGATIVE); MUCUS <1+ /lpf (NONE SEEN); NITRITE NEGATIVE (NEGATIVE); PROTEIN NEGATIVE (NEGATIVE); RED CELLS - URINE 0-5 /hpf (0-5); SPECIFIC GRAVITY 1.015 (1.005-1.020); UROBILINOGEN NORMAL (NORMAL); WHITE CELLS - URINE RARE /hpf (0-5)
--- NOTE | 2018-08-23 11:44 | NUR ---
HALF-WAY STAFF AT BEDSIDE FOR PATIENT EVAL
--- NOTE | 2018-08-23 12:45 | NUR ---
The patient voluntarily admits himself to senior living from the [facility] He does c/o depression, he says for over a year, but he says "I just can't help myself anymore, I don't have any desire to do anything." He admits to being stressed. He and his ex- are friends and recently she has fallen and broke both her hips and he has been trying to help take care of her and he is worn out. The patient ambulates independently. He wears glasses, bilat. hearing aids, and he has upper and lower dentures. He has a yellow metal chain on that we noticed after his son left as his son took the wallet, belt, watch, and cell phone.
[2018-08-23 12:58] VITALS: BP 150/70; BMI 26.8
[2018-08-23 14:08] LABS: CHOL - HDL RATIO 2.4 ratio (2.3-4.9); LDL-HDL RATIO 0.9 ratio (1.5-3.5)
[2018-08-23 19:42] VITALS: BP 174/75
--- NOTE | 2018-08-24 02:43 | NUR ---
B) Patient is alert and oriented X 4, depressed, expressed concern about O2 at night, his O2 was 95%, I) Administered scheduled medications as ordered, redirected as needed, moinitored for safety R) Medication compliant, follow instructions, P) Continue plan of care.
--- NOTE | 2018-08-24 07:45 | NUR ---
B) The patient is awake and alert, he is oriented x 3, he has a hx of COPD and says he uses oxygen and nebulizers at home. Explained to him that Dr. Grove will be in and we will speak to him about it. He is pleased to hear it. He says he is SOB when he walks. Yesterday he did not mention that at all. His lungs are xlear. I) Provide prescribed meds. R) The patient is interacting with his peers and staff. He remains sad and depressed. P) Continue POC.
[2018-08-24 09:25] VITALS: BP 154/81
[2018-08-24 11:02] VITALS: BMI 26.8
--- NOTE | 2018-08-24 11:02 | NUR ---
The patient is anxious, he is shakey, he c/o being anxious. Provide ativan 0.5 mg po now. He did speak to Shawna about oxygen and a nebulizer.
--- NOTE | 2018-08-24 12:31 | PSY ---
PATIENT NAME:SEB LOZA MEDICAL RECORD: [id number] : [birth year] LOCATION:[facility] ADMISSION DATE: 08/23/18 ACCOUNT: [id number] PSYCHIATRIC EVALUATION DATE OF EVALUATION: 08/23/18 IDENTIFYING DATA: The patient is 88 years old and he is admitted to the hospital on a voluntary basis. CHIEF COMPLAINT: Depression. HISTORY OF PRESENT ILLNESS: The patient presented to the Emergency Room this morning indicating that he was having weakness, insomnia and feeling that he could no longer go on as he is. When asked thoughts of self-harm, he denied it, but did not do so in a way that was very convincing. He is endorsing numerous neurovegetative depressive symptoms. He denies memory impairment, but then does have significant neurocognitive impairment on exam. He denies substance abuse and denies any psychotic symptoms as well as thoughts of harming himself or others. PAST MEDICAL HISTORY: Significant for visual and hearing deficits. 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 He has benign prostatic hypertrophy. PAST PSYCHIATRIC HISTORY: Negative for any mental health treatment or hospitalizations. However, he, through much of his adult life, drank too excess, and about 20 years ago stopped doing so after going through residential treatment program at the [facility]. His drinking did cause conflict with his family and he thinks it was a major factor in the marital difficulties he has had. He denies that it caused him any occupational problems. FAMILY HISTORY: Significant for hypertension. ALLERGIES: No known drug allergies. CURRENT MEDICATIONS: Include folic acid, Linzess, potassium, Lasix, aspirin, Lipitor, Protonix, Xanax, and Flomax. SOCIAL HISTORY: The patient is retired. He worked for a [employer] for many years. He and had children at a relatively young age, but then his , was from her for some time, then remarried her and has now her again. He says that they are friends, they see each other regularly, help each other and are supportive emotionally, but he lives alone. He has lost interest in his usual mandaen activities. He was a [employer] or I suppose still is a [employer], but he does not go to mandaen regularly. He does have a history of alcohol abuse as mentioned above, but has not drank any for 20 years. He quit smoking about the same time. Since care home, he has become increasingly isolative, stating that he no longer plays golf or sees any of his friends or goes to any of the other mandaen or club activities that he formerly did. He says that he primarily gets up in the morning, watches TV all day and then goes to bed. MENTAL STATUS EXAMINATION: The patient is awake, alert and oriented to person, place, time and situation. His mood is flat. His affect is constricted. Thought processes are circumstantial. Memory, concentration, and abstraction abilities are moderately impaired and he denies any active intent to harm himself or others as well as overt psychotic symptoms. ASSETS: Supportive family members. LIABILITIES: Limited insight. 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 AXIS II: None. AXIS III: Hypertension, benign prostatic hypertrophy, coronary artery disease, hyperlipidemia. AXIS IV: Moderate. AXIS V: Global assessment of functioning is 35. PLAN: At this time, the patient is admitted to the hospital for a comprehensive medical, psychological, and social evaluation. He will be treated with both mood stabilizing and memory enhancing medications. His long-term prognosis is guarded. TRANSINT:[id number] Voice Confirmation ID: [id number] DOCUMENT ID: [id number] ЕЛЕНА MATHEWS MD at 1231 CC: [id number] DICTATION DATE: 08/23/18 1556 APPLICATION SPECIALIST: 08/23/18 1656 [facility] [place] [id number] [place] [address]
[2018-08-24 14:00] VITALS: Wt 84.8 kg
[2018-08-24 20:06] VITALS: BP 133/75
--- NOTE | 2018-08-25 02:14 | NUR ---
B) Patient is alert and oriented X 3, calm and cooperative, follows instruction, I) Administered scheduled medications as ordered, R) Mediation compliant, pleasant and friendly toward staff, P) Continue plan of care.
--- NOTE | 2018-08-25 07:53 | NUR ---
B) The patient is awake and alert, he is pleasant he has intermittant times where he has forgetfulness and he is a bit anxious this am, but he says he slept well and he is not nearly as anxious and jittery as he was yesterday. He ambulates independently, he has his oxygen on at 2L/M per NC. I) Provide prescribed meds. R) The patient is cooperative and compliant with unit milieu. P) Continue POC.
[2018-08-25 08:39] VITALS: BP 134/79
[2018-08-25 20:57] VITALS: BP 147/87
--- NOTE | 2018-08-26 03:21 | NUR ---
B) Patient is alert and oriented to X 3, calm and cooperative, social with peers and staff, I) Administered scheduled medications as ordered, monitored for safety and for needs, R) Mediation compliant, sleep soundly in his bed, P) Continue plan of care.
--- NOTE | 2018-08-26 07:45 | NUR ---
THE PT IS AWAKE AND ALERT, HE ORIENTED X 3. DENIES ANY THOUGHTS OF SELF HARM AT THIS TIME. PT IS CALM AND COOPERATIVE WITH ASSESSMENT. PRESCRIBED MEDS PROVIDED. MED COMPLIANT. FALL PRECAUTIONS IN PLACE. PT REMAINS SAD AND DEPRESSED AT THIS TIME. WILL CONTINUE TO MONITOR Q 15 MINUTES FOR SAFETY. WILL CPOC.
[2018-08-26 20:18] VITALS: BP 126/62
[2018-08-27 07:53] VITALS: BP 114/57
--- NOTE | 2018-08-27 13:11 | NUR ---
B) PT IS ALERT AND ORIENTED X 3. CALM AND COOPERATIVE. I) PRESCRIBED MEDS PROVIDED R) MED COMPLIANT P) CONTINUE PLAN OF CARE
[2018-08-27 22:18] VITALS: BP 129/60
--- NOTE | 2018-08-28 00:09 | NUR ---
PATIENT IS COOPERATIVE, PLEASANT BUT IS CONFUSED AT TIMES, COMPLIANT WITH MEDS, NO ADVERSE REACTION NOTED. MARJORIE SALGADO
--- NOTE | 2018-08-28 08:00 | NUR ---
PATIENT IS PLEASANT, BUT CONFUSED. REDIRECT AND REORIENT NEEDED. ADMININISTERED SCHEDULED MEDICATIONS. WILL CONTINUE TO MONITOR.
--- NOTE | 2018-08-28 16:25 | PN ---
PATIENT:SEB BEGUM MEDICAL RECORD: [id number] [facility] ADMISSION DATE: 08/23/18 PROGRESS NOTE DATE OF SERVICE: 08/25/2018 SUBJECTIVE: Mr. Begum is an 88-year-old male who was admitted after reporting to the Emergency Room, although he denied SI, he did it in a very unconvincing way. He states that he has been most of his time watching TV, rarely leaves the house. He denies SI now, but reports that he knows he needs to change his lifestyle. We talked about his limited number of relationships, his limited social activities and talked about things like deer hunting and golf that he finds no jeanna in those anymore. He reports he is tolerating the Effexor okay right now. He is eating 100% to 175% of meals. His last bowel movement was on the 15th. He slept 8.75 hours. OBJECTIVE: VITAL SIGNS: His latest vitals are; temperature 97.3, pulse 80, respirations 18, blood pressure 134/79, and oxygen saturation 95% on O2 at 2 liters. PLAN: Continue to monitor for suicidal/depressive symptomatology. Try to come up with a plan to help him once he goes home, decrease his social isolation. We will continue to monitor Effexor for side effects and benefits. Case discussed with nursing. Chart was reviewed and the patient interviewed. TRANSINT:[id number] Voice Confirmation ID: [id number] DOCUMENT ID: [id number] MARICHUY CASTANEDA MD at 1625 CC: [id number] DICTATION DATE: 08/25/18 1330 SAIL FINISHER HAND: 08/25/18 1401 ADM IN [facility] [address] [place] [id number]
[2018-08-28 19:49] VITALS: BP 122/60
--- NOTE | 2018-08-29 04:15 | NUR ---
B) Patient is alert and oriented to person, place and time, calm and cooperative and takes care of himself, I) Administered scheduled medications as ordered, monitored for safety, R) Mediation compliant, pleasant and social with staff and peers, P) Continue plan of care.
[2018-08-29 08:12] VITALS: BP 108/68
--- NOTE | 2018-08-29 08:32 | NUR ---
B) PATIENT IS ALERT AND SOCIAL THIS AM, CALM AND COOPERaTIVE WITH ASSESSMENT. I) PROVIDE SCHEDULED MEDICATIONS. R) COMPLIANT WITH MEDICATIONS. P) CONTINUE PLN OF CARE.
[2018-08-29] MEDS ORDERED: EFFEXOR37.5 MG PO (12:38)
[2018-08-29] MEDS ORDERED: NAMENDA5 MG PO (12:39)
[2018-08-29] MEDS ORDERED: ANORO ELLIPTA1 EACH INH (12:40)
[2018-08-29 19:53] VITALS: BP 145/69
--- NOTE | 2018-08-30 01:03 | NUR ---
B) Patient is alert and oriented X 4, calm and cooperative, I) Administered scheduled medications as ordered, monitored for safety R) Mediation compliant, pleasnat and friendly toward staff, P) Continue plan of care.
[2018-08-30 09:51] VITALS: BP 116/64
[2018-08-30 10:06] VITALS: BP 116/64
--- NOTE | 2018-08-30 10:30 | NUR ---
RECEIVED PATIENT IN DINING ROOM FOR B'FAST, ALERT, ORIENTED, CALM. STATED THAT HE WAS DISCHARGING LATER TODAY. MEDS ADMIN PER ORDERS WITH COMPLETE MED COMPLIANCE NOTED. COOPERATIVE WITH STAFF AND GROUP ACTIVITY. DISCHARGE LATER THIS SHIFT.
--- NOTE | 2018-08-30 10:48 | NUR ---
PT IS DISCHARGING TODAY. REVIEWED DISCHARGE PLAN AND DISCHARGE MEDICATIONS WITH PT. VERBALIZED UNDERSTANDING. PT IS CALM, COOPERATIVE. MEDICATIONS GIVEN ORDERED. MEDICATIONS CALLED INTO PHARMACY. PAPERWORK FAXED TO PCP.
--- NOTE | 2018-09-01 12:52 | DS ---
PATIENT:SEB BEGUM :32 MEDICAL RECORD: [id number] DISCHARGE SUMMARY ADMISSION DATE: 08/23/18 DISCHARGE DATE: 08/30/18 HOSPITAL COURSE: Mr. Begum is an 88-year-old male who was admitted after reporting to the ER stating he was very depressed, weak, had insomnia, and could no longer go on as he was, although he did not outright report suicidal ideation. The course of the hospitalization, the patient's medication regimen was adjusted and slowly patient's mood, affect, and psychomotor status improved. By the time he was discharged, the patient had future plans. He denied SI and was looking forward to discharge. No auditory or visual hallucinations. No delusions. DISCHARGE MENTAL STATUS: This is an 88-year-old male, dressed and groomed casually and appropriately, cooperative with interview. No psychomotor agitation or retardation. Speech is regular rate and rhythm. Mood is better with affect bright. Thought process rational and goal directed. Thought content: Denies suicidal or homicidal ideation, auditory or visual hallucinations or delusions. DIAGNOSTIC IMPRESSION: 1. Major depression, moderate, single episode, resolving. 2. Moderate neurocognitive disorder. 3. Hypertension. 4. Benign prostatic hypertrophy. 5. Coronary artery disease. 6. Hyperlipidemia. DISCHARGE MEDICATIONS: Included Linzess 145 mcg daily, trazodone 100 mg q.h.s., Tamiflu 75 mg times 2 days, potassium chloride 10 mEq daily, Lasix 20 mEq daily, folate 1 mg daily, aspirin 325 daily, Effexor 37.5 mg b.i.d., Flomax 0.4 q.h.s., Protonix 40 mg q.h.s., Namenda 2.5 b.i.d., lactobacillus 1 tablet q.h.s. DISPOSITION: The patient discharged to home with outpatient appointments made for continuing psychiatric care with PCP. Case discussed with nursing. Chart was reviewed and the patient interviewed. TRANSINT:[id number] Voice Confirmation ID: [id number] DOCUMENT ID: [id number] MARICHUY CASTANEDA MD at 1252 CC: [id number] DICTATION DATE: 08/30/18 172 LEAD INVESTIGATOR: 08/31/18 0301 DIS IN 08/30/18 [address] [place] [address]
--- NOTE | 2018-09-01 12:52 | PN ---
PATIENT:SEB BEGUM MEDICAL RECORD: [id number] LOCATION:[facility] ADMISSION DATE: 08/23/18 PROGRESS NOTE DATE OF SERVICE: 08/29/2018 SUBJECTIVE: Mr. Begum is an 88-year-old gentleman who was admitted after reporting severe depression, and although he denied SI, he did it in a very unconvincing manner at the time of admission. Initially, he had been flat, still reporting lots of depressive symptoms; but as admission has progressed, his affect and his psychomotor status have improved and now he states he is doing much better. He is eating 100%, 95%, and 100%. Last bowel movement was on . He slept 6 hours. LATEST VITAL SIGNS: Temperature 98.4, pulse 94, respirations 20, blood pressure 108/58, and saturation 91%. ASSESSMENT: Unchanged. PLAN: Anticipate discharge tomorrow if the patient continues stable. Case discussed with treatment team. Chart reviewed and the patient interviewed. TRANSINT:[id number] Voice Confirmation ID: [id number] DOCUMENT ID: [id number] MARICHUY CASTANEDA MD at 1252 CC: [id number] DICTATION DATE: 08/29/18 1243 DRIER AND EVAPORATOR OPERATOR: 08/29/18 1439 DIS IN 08/30/18 [facility] [address] [place] [address]
--- NOTE | 2018-09-01 12:52 | PN ---
PATIENT:SEB LOZA MEDICAL RECORD: [id number] LOCATION:[facility] ADMISSION DATE: 08/23/18 PROGRESS NOTE DATE OF SERVICE: 08/28/2018 SUBJECTIVE: The patient is an 88-year-old male, who lives alone. He denied SI in an unconvincing way upon admission. He now has less psychomotor retardation. His affect is brighter. He continued to deny SI. He is socializing more. OBJECTIVE: LATEST VITAL SIGNS: 97.9, 69, 20, 129/60, 96%. He is eating 100% to 190%. Last bowel movement was 16th and he slept 6 hours. ASSESSMENT unchanged. PLAN: Anticipate discharge on if his mood and affect continue to improve. Case discussed with nursing. Chart reviewed and patient interviewed. TRANSINT:[id number] Voice Confirmation ID: [id number] DOCUMENT ID: [id number] MARICHUY CASTANEDA MD at 1252 CC: [id number] DICTATION DATE: 08/28/18 1650 ORGAN TEACHER: 08/28/18 2148 DIS IN 08/30/18 [facility] [address] [place] [address]
--- NOTE | 2018-09-03 13:16 | PN ---
PATIENT:SEB LOZA MEDICAL RECORD: [id number] LOCATION:[facility] ADMISSION DATE: 08/23/18 PROGRESS NOTE DATE OF SERVICE: 08/24/2018 SUBJECTIVE: The patient's case was discussed with staff. He has no new complaint. OBJECTIVE: The patient denies intent to harm himself or others. He reports a depressed mood and says that he did not sleep well at all last night. This is contrary to what was measured by the nursing staff, but I will accept it. ASSESSMENT: No change in diagnoses. PLAN: The patient will be given trazodone at a higher dose of 100 mg at bedtime. His long-term prognosis is guarded. Both supportive and educational interventions were made. TRANSINT:[id number] Voice Confirmation ID: [id number] DOCUMENT ID: [id number] ЕЛЕНА MATHEWS MD at 1316 CC: [id number] DICTATION DATE: 08/24/18 1335 PREDATOR CONTROL TRAPPER: 08/24/18 1402 DIS IN 08/30/18 [id number] [place] [address]
== END 2018-08-30 14:00 | disposition home or self-care (01) | DRG 885 ==
LOC: D.ER 09:09 → D.EDHOLD 12:08 → D.PSYCH 12:08
PROVIDERS: Family Medicine; ADMIT Psychiatry & Neurology Psychiatry; ATTEND Psychiatry & Neurology Psychiatry
DX: F32.1 Major depressive disorder, single episode, moderate (principal); G30.1 Alzheimer's disease with late onset; F02.80 Dementia in other diseases classified elsewhere, unspecified severity, without behavioral disturbance, psychotic disturbance, mood disturbance, and anxiety; N40.0 Benign prostatic hyperplasia without lower urinary tract symptoms; I25.10 Atherosclerotic heart disease of native coronary artery without angina pectoris; E78.5 Hyperlipidemia, unspecified; F41.9 Anxiety disorder, unspecified; G47.00 Insomnia, unspecified; J44.9 Chronic obstructive pulmonary disease, unspecified; G47.33 Obstructive sleep apnea (adult) (pediatric); M19.90 Unspecified osteoarthritis, unspecified site; I12.9 Hypertensive chronic kidney disease with stage 1 through stage 4 chronic kidney disease, or unspecified chronic kidney disease; N18.9 Chronic kidney disease, unspecified; K21.9 Gastro-esophageal reflux disease without esophagitis; K59.00 Constipation, unspecified

== ENCOUNTER → 2018-11-22 09:54 | Outpatient (CLI) | payer MEDICARE, OTHER ==
[2018-08-24 14:00] VITALS: BMI 26.8
[~2018-11-22 09:54] MED LIST changes: +ANORO ELLIPTA1 EACH INH; +EFFEXOR37.5 MG PO; +NAMENDA5 MG PO
== END | disposition home or self-care (01) ==
LOC: D.CT 09:54
PROVIDERS: ATTEND Internal Medicine Cardiovascular Disease
DX: R91.8 Other nonspecific abnormal finding of lung field (principal)

== ENCOUNTER 2018-12-05 11:33 | Outpatient (CLI) | payer MEDICARE, OTHER ==
[~2018-12-05] VITALS: Ht 180.3 cm; Wt 83.0 kg
[2018-12-05 12:18] LABS: INR 1.09 (0.85-1.17); PROTIME 13.6 SECONDS (11.6-15.0)
[2018-12-05 12:21] LABS: BASOPHILS 0.2 % (0-2); EOSINOPHILS 1.5 % (0-7); HEMATOCRIT 46.5 % (42.0-54.0); HEMOGLOBIN 15.7 g/dL (13.5-17.5); IMMATURE GRANULOCYTES 0.1 % (0-5); MCH 30.8 pg (26.0-34.0); MCHC 33.8 g/dL (31.0-37.0); MCV 91.2 fL (80.0-100.0); MEAN PLATELET VOLUME 9.5 fL (7.4-10.4); MONOCYTES 8.9 % (2-11); NEUTROPHILS 67.3 % (40-80); PLATELET COUNT 237 10x3/uL (130-400); RDW 14.7 % (11.5-14.5); WBC 8.4 10x3/uL (4.8-10.8)
[2018-12-05 13:13] VITALS: BP 151/77; Ht 180.3 cm; Wt 83.0 kg
--- NOTE | 2018-12-05 16:37 | NUR ---
INSTRUCTIONS GIVEN TO PT AND SON. CXR NOTED AND NO PNEUMONTHORAX. NO SOB PT HAS HOME 02 2LITER. COLOR GOOD. ENCOURAGED COLD FLUIDS. TYLENOL FOR PAIN AND TO START WITH WATER. TO CALL OFFICE FOR FOLLOW UP APT.
--- NOTE | 2018-12-05 17:14 | NUR ---
6705 IV REMOVED AND PRESSURE HELD. DRESSING APPLIED
== END 2018-12-05 17:05 | disposition home or self-care (01) ==
LOC: D.OPS 11:33
PROVIDERS: ATTEND Internal Medicine Pulmonary Disease
DX: C7A.8 Other malignant neuroendocrine tumors (principal); Z01.812 Encounter for preprocedural laboratory examination

== ENCOUNTER → 2018-12-11 09:06 | Outpatient (CLI) | payer MEDICARE, OTHER ==
[2018-12-05 13:13] VITALS: BMI 25.5
== END | disposition home or self-care (01) ==
LOC: D.RAD 09:06
PROVIDERS: ATTEND Internal Medicine Pulmonary Disease
DX: J90 Pleural effusion, not elsewhere classified (principal)

== ENCOUNTER → 2018-12-18 09:27 | Outpatient (CLI) | payer MEDICARE, OTHER ==
[2018-12-05 13:13] VITALS: BMI 25.5
== END | disposition home or self-care (01) ==
LOC: D.MRI 09:27
PROVIDERS: ATTEND Internal Medicine Medical Oncology
DX: C34.81 Malignant neoplasm of overlapping sites of right bronchus and lung (principal); J91.0 Malignant pleural effusion

== ENCOUNTER → 2019-01-15 08:42 | Outpatient (CLI) | payer MEDICARE, OTHER ==
[2018-12-05 13:13] VITALS: BMI 25.5
== END | disposition home or self-care (01) ==
LOC: D.MRI 08:42
PROVIDERS: ATTEND Internal Medicine Medical Oncology
DX: C34.81 Malignant neoplasm of overlapping sites of right bronchus and lung (principal)